=== PATIENT | female | born 2000 | race Caucasian/White ===

== ENCOUNTER 2021-03-21 17:43 | Emergency (ER) | payer MEDICAID ==
[2021-03-21] MEDS ORDERED: Acetaminophen 325 MG TAB ONE (19:12)
[2021-03-21] MEDS ORDERED: traMADol HCl 50 MG TAB ONE (19:12)
[2021-03-21] MEDS ORDERED: Ketorolac Tromethamine 60 MG/2 ML VIAL ONE (19:12)
[2021-03-21] MEDS ORDERED: Cyclobenzaprine 10 MG TAB ONE (19:14)
== END 2021-03-21 20:06 | disposition home or self-care (01) ==
LOC: NAV ERS 17:43
DX: M62.830 Muscle spasm of back (principal)
CPT/HCPCS: 96372; 99283; J1885

== ENCOUNTER 2021-04-10 14:55 | Emergency (ER) | payer MEDICAID ==
[2021-04-11 16:03] LABS: SARS-CoV-2 PCR by NAA Not Detected (NotDetected)
== END 2021-04-10 16:45 | disposition home or self-care (01) ==
LOC: NAV ERS 14:55
DX: R50.9 Fever, unspecified (principal); R05 Cough; R19.7 Diarrhea, unspecified; Z20.822 Contact with and (suspected) exposure to COVID-19
CPT/HCPCS: 87081; 87430; 99284; U0003; U0005